=== PATIENT | female | born 1960 | race African-American/Black ===

== ENCOUNTER 2017-04-16 02:09 | Emergency (ER) | payer MEDICAID, MEDICARE ==
[~2017-04-16] VITALS: Ht 154.9 cm; Wt 137.0 kg
[~2017-04-16 02:09] MED LIST: AMBILIFY PO; ATEN-42 PO; BUPR100T4 PO; FERR-43 PO; FURO-152 PO; ONDA4TAB5 PO; POTA10CA42 PO; TRAM50TA3 PO
[2017-04-16] MEDS ORDERED: LORAZEPAM 1MG TABLET PO ONE ×2 (02:30→08:15)
[2017-04-16 06:47] LABS: CLARITY URINE CLEAR (CLEAR); COLOR URINE YELLOW (YELLOW); KETONES URINE NEGATIVE (NEGATIVE); LEUKOCYTE ESTERASE URINE NEGATIVE (NEGATIVE); NITRITE URINE NEGATIVE (NEGATIVE); OCCULT BLOOD URINE 1+ (NEGATIVE); PROTEIN URINE NEGATIVE (NEGATIVE); SPECIFIC GRAVITY URINE 1.022 (1.005-1.030); UROBILINOGEN URINE 0.2 E.U./dL (0.2-1.0)
[2017-04-16 07:36] LABS: BASOPHILS % 0.5 % (0.0-2.0); HEMATOCRIT. 37.4 % (36.0-48.0); HEMOGLOBIN. 11.7 g/dL (12.0-16.0); LYMPHOCYTES % 22.3 % (20.0-50.0); MEAN CORPUSCULAR HEMOGLOBIN 23.9 pg (28.0-32.0); MEAN CORPUSCULAR VOLUME 76.5 fL (81.0-99.0); MEAN PLATELET VOLUME 8.1 fl (7.4-10.4); MONOCYTES % 13.5 % (2.0-8.0); NEUTROPHILS % 60.7 % (40.0-76.0); PLATELET 321 x1000/uL (130-400); RED BLOOD CELL COUNT 4.89 mill/uL (4.2-5.4); RED CELL DISTRIBUTION WIDTH 19.3 % (11.6-14.6)
[2017-04-16 07:41] LABS: CHLORIDE 102 mEq/L (98-107)
[2017-04-16 07:42] LABS: INR 1.1; PROTHROMBIN TIME 11.4 sec (9.4-11.6)
[2017-04-16 07:49] LABS: CARBON DIOXIDE 27 mEq/L (21-32); ETHANOL BLOOD < 10 mg/dL
[2017-04-16 07:56] LABS: *AMPHETAMINES SCREEN URINE NEGATIVE (NEGATIVE); *BARBITURATES SCREEN URINE NEGATIVE (NEGATIVE); *BENZODIAZEPINES SCREEN URINE NEGATIVE (NEGATIVE); *COCAINE SCREEN URINE NEGATIVE (NEGATIVE); CANNABINOID URINE SCREEN NEGATIVE (NEGATIVE); METHADONE URINE SCREEN NEGATIVE (NEGATIVE); OPIATES URINE SCREEN NEGATIVE (NEGATIVE); PHENCYCLIDINE URINE SCREEN NEGATIVE (NEGATIVE)
[2017-04-16] MEDS ORDERED: LORAZEPAM 1MG TABLET PO SCH (08:15)
[2017-04-16] MEDS ORDERED: ONDANSETRON HCL 4MG/2ML VIAL IV STA (08:44)
[2017-04-16] MEDS ORDERED: MORPHINE SULFATE 4 MG/ML CPJ (NOT FOR IM USE) IV STA (08:44)
[2017-04-16] MEDS ORDERED: POTASSIUM CHLORIDE 10MEQ TABLET SR PO ONE (08:45)
[2017-04-16 11:44] VITALS: BP 160/78
== END 2017-04-16 11:53 | disposition home or self-care (01) ==
LOC: ER 02:28
DX: R44.1 Visual hallucinations (principal); F31.9 Bipolar disorder, unspecified; F41.9 Anxiety disorder, unspecified; I11.0 Hypertensive heart disease with heart failure; I50.9 Heart failure, unspecified; Z86.73 Personal history of transient ischemic attack (TIA), and cerebral infarction without residual deficits; Z88.1 Allergy status to other antibiotic agents
CPT/HCPCS: 36415; 70450; 80053; 80305; 80307; 80329; 81001; 85025; 85610; 93005; 99285; G0482; J2270; J2405

== ENCOUNTER 2022-08-27 23:21 | Emergency (ER) | payer MEDICARE, OTHER ==
[~2022-08-27] VITALS: Ht 167.6 cm; Wt 127.0 kg
[~2022-08-27 23:21] MED LIST changes: -POTA10CA42 PO; +POTA10CA43 PO
[2022-08-28 01:24] LABS: BASOPHILS % 0.3 % (0.0-2.0); EOSINOPHILS % 0.3 % (0.0-5.0); HEMATOCRIT. 36.9 % (36.0-48.0); HEMOGLOBIN. 12.3 g/dL (12.0-16.0); LYMPHOCYTES % 16.5 % (20.0-50.0); MEAN CORPUSCULAR VOLUME 92.7 fL (81.0-99.0); MEAN PLATELET VOLUME 9.2 fl (7.4-10.4); MONOCYTES % 10.3 % (2.0-8.0); NEUTROPHILS % 72.6 % (40.0-76.0); PLATELET 326 x1000/uL (130-400); RED BLOOD CELL COUNT 3.98 mill/uL (4.2-5.4); RED CELL DISTRIBUTION WIDTH 14.5 % (11.6-14.6)
[2022-08-28 01:30] LABS: CHLORIDE 101 mEq/L (98-107)
[2022-08-28] MEDS ORDERED: MORPHINE SULFATE 4 MG/ML CPJ (NOT FOR IM USE) IV ONE (03:15)
[2022-08-28] MEDS ORDERED: ONDANSETRON HCL 4MG/2ML INJ IV ONE (03:15)
[2022-08-28] MEDS ORDERED: HYDR-4001 MT (07:07)
[2022-08-28 08:00] VITALS: BP 180/77
== END 2022-08-28 09:20 | disposition home or self-care (01) ==
LOC: ER 23:21
DX: D25.9 Leiomyoma of uterus, unspecified (principal); I11.0 Hypertensive heart disease with heart failure; I50.9 Heart failure, unspecified; F41.9 Anxiety disorder, unspecified; F31.9 Bipolar disorder, unspecified; Z20.822 Contact with and (suspected) exposure to COVID-19
CPT/HCPCS: 36415; 74176; 76856; 80053; 83605; 83690; 85025; 87426; 96374; 96375; 99285; C9803; J2270; J2405